=== PATIENT | female | born 1995 | race Caucasian/White ===

== ENCOUNTER 2017-12-07 03:24 | Emergency (ER) | payer OTHER, MEDICAID ==
[2017-12-07] MEDS: KETOROLAC 60 MG INJ IM (04:22)
== END 2017-12-07 04:42 | disposition home or self-care (01) ==
LOC: FTE 03:24
DX: M54.42 Lumbago with sciatica, left side (principal); M54.41 Lumbago with sciatica, right side
CPT/HCPCS: 81025; 96372; 99284-25